=== PATIENT | female | born 1950 | race American Indian/Alaskan Native ===

== ENCOUNTER 2021-07-14 20:40 | Emergency (ER) | payer MEDICARE ==
--- NOTE | 2021-07-14 22:40 | XRay Report ---
LEFT HIP 2 VIEW(S) INDICATION / CLINICAL INFORMATION: fall COMPARISON: None available. FINDINGS: BONES / JOINT(S): No acute displaced fracture or dislocation. Mild DJD of bilateral hip joints. SOFT TISSUES: There is a 4 to 5 cm calcified lesion projecting at the left SI joint which is nonspeci fic. This can be further evaluated with a CT if clinically indicated. ADDITIONAL FINDINGS: None. Signer Name: Cordell Barry MD Signed: 07/14/2021 10:35 PM Workstation Name: [id number]
[2021-07-15] MEDS ORDERED: oxyCODONE /ACETAMINOPHEN 5-325MG TAB PO ONE (02:07)
--- NOTE | 2021-07-15 02:13 | Emergency Department Report ---
ED Lower Extremity HPI - General Chief Complaint: Fall Stated Complaint: FALL/LEFT HIP/LEG Time Seen by Provider: 07/15/21 02:02 Source: patient Mode of arrival: Ambulatory Limitations: No Limitations - History of Present Illness Complaint: hip injury, leg injury -: week(s) (Fell 1 week ago with symptoms still linger today) Injury: Hip: Left, Leg: Left Type of Injury: blunt Place: home Worsens With: nothing Context: fall (Ms. Litzy Hightower is resting to the bathroom this evening when she was utilizing her walker to get her there. In the process she lost her balance due to something being in the way of the walker or misstep and with the foot causing a mechanical fall landing on her left side striking her lower leg ) Associated Symptoms: ambulatory - Related Data Allergies Allergy/AdvReac Type Severity Reaction Status Date / Time No Known Allergies Allergy Verified 07/14/21 21:43 ED Review of Systems ROS: Stated complaint: FALL/LEFT HIP/LEG Other details as noted in HPI Comment: All other systems reviewed and negative ED Past Medical Hx - Past Medical History Previous Medical History?: Yes Additional medical history: ARTHRITIS - Surgical History Past Surgical History?: No - Social History Smoking Status: Never Smoker Substance Use Type: None ED Physical Exam - General Limitations: No Limitations General appearance: alert, in no apparent distress - Head Head exam: Present: atraumatic, normocephalic - Eye Eye exam: Present: normal appearance - ENT ENT exam: Present: mucous membranes moist - Neck Neck exam: Present: normal inspection - Respiratory Respiratory exam: Present: normal lung sounds bilaterally. Absent: respiratory distress - Cardiovascular Cardiovascular Exam: Present: regular rate, normal rhythm. Absent: systolic murmur, diastolic murmur, rubs, gallop - GI/Abdominal GI/Abdominal exam: Present: soft, normal bowel sounds - Extremities Exam Extremities exam: Present: normal inspection, tenderness - Expanded Lower Extremity Exam Left Hip exam: Present: tenderness. Absent: ecchymosis, deformity, external rotation, internal rotation, shortening Upper Leg exam: Present: normal inspection Knee exam: Present: normal inspection, full ROM Lower Leg exam: Present: tenderness, swelling. Absent: deformity, crepidus, dislocation, palpable cord, Randall's sign Ankle exam: Present: normal inspection, full ROM Foot/Toe exam: Present: normal inspection, full ROM Neuro vascular tendon exam: Absent: abnormal cap refill - Back Exam Back exam: Present: normal inspection - Neurological Exam Neurological exam: Present: alert, oriented X3 - Psychiatric Psychiatric exam: Present: normal affect, normal mood - Skin Skin exam: Present: warm, dry, intact, normal color. Absent: rash ED Course Vital Signs 07/14/21 21:39 Temperature 97.8 F Pulse Rate 83 Respiratory 18 Rate Blood Pressure 147/45 O2 Sat by Pulse 96 Oximetry ED Lower Extremity MDM - Radiology Data Radiology results: report reviewed [address] [address] XRay Report Signed Patient: LAUREL TRACY MR #: [id number] : 1950 Acct:[id number] Age/Sex: 70 / F ADM Date: 07/14/21 Loc: ED Attending Dr: Ordering Physician: KVNG KARIMI MD Date of Service: 07/14/21 Procedure(s): XR hip 2-3V LT Accession Number(s): [id number] cc: ED MD TREV Fluoro Time In Minutes: LEFT HIP 2 VIEW(S) INDICATION / CLINICAL INFORMATION: fall COMPARISON: None available. FINDINGS: BONES / JOINT(S): No acute displaced fracture or dislocation. Mild DJD of bilateral hip joints. SOFT TISSUES: There is a 4 to 5 cm calcified lesion projecting at the left SI joint which is nonspecific. This can be further evaluated with a CT if clinically indicated. ADDITIONAL FINDINGS: None. Signer Name: Cordell Barry MD Signed: 07/14/2021 10:35 PM Workstation Name: [id number] Transcribed By: DB Dictated By: CORDELL BARRY MD Electronically Authenticated By: CORDELL BARRY MD Signed Date/Time: 07/14/212234 DD/ 33 TD/TT: [address] [address] XRay Report Signed Patient: LAUREL TRACY MR #: [id number] : 1950 Acct:[id number] Age/Sex: 70 / F ADM Date: 07/14/21 Loc: ED Attending Dr: Ordering Physician: JACLYN THORNTON Date of Service: 07/15/21 Procedure(s): XR tibia fibula 2V LT Accession Number(s): [id number] cc: JACLYN THORNTON Fluoro Time In Minutes: LEFT TIBIA-FIBULA 2 VIEW(S) INDICATION / CLINICAL INFORMATION: fall lower leg pain COMPARISON: None available. FINDINGS: BONES / JOINT(S): No acute fracture or subluxation. Advanced tricompartmental osteoarthrosis of the left knee is present with narrowing of the medial joint compartment. SOFT TISSUES: No significant abnormality. ADDITIONAL FINDINGS: None. IMPRESSION: 1. No acute fractures. Advanced tricompartmental osteoarthrosis of the left knee. Signer Name: Lambert Bryant II, MD Signed: 07/15/2021 2:50 AM Workstation Name: [id number] Transcribed By: DI Dictated By: LAMBERT BRYANT II, MD Electronically Authenticated By: LAMBERT BRYANT II, MD Signed Date/Time: 07/15/21249 DD/ 9 TD/TT: - Medical Decision Making Seen emergency department today for left lower extremity pain due to a fall 1 week ago. Patient is ambulatory with her walker which is her usual form of transportation. While in the emergency department she was believed to have stable gait and bilateral lower extremity m. x-rays were obtained of the hip and lower leg and none showed any fracture or dislocation. Patient is educated on medication icing and management and advised to follow-up with orthopedic for definitive treatment. [place] been brought to her knowledge about the advanced tricompartmental arthritis to the knee which may warrant further pain flareups in the near future Critical care attestation.: If time is entered above; I have spent that time in minutes in the direct care of this critically ill patient, excluding procedure time. ED Disposition Clinical Impression: Contusion of left hip Disposition: HOME / SELF CARE / HOMELESS Is pt being admited?: No Does the pt Need Aspirin: No Condition: Stable Instructions: Contusion, How to Use Cold Therapy Referrals: YONNY ISABEL MD [Staff Physician] - 3-5 Days
--- NOTE | 2021-07-15 02:55 | XRay Report ---
LEFT TIBIA-FIBULA 2 VIEW(S) INDICATION / CLINICAL INFORMATION: fall lower leg pain COMPARISON: None available. FINDINGS: BONES / JOINT(S): No acute fracture or subluxation. Advanced tricompartmental osteoarthrosis of the l eft knee is present with narrowing of the medial joint compartment. SOFT TISSUES: No significant abnormality. ADDITIONAL FINDINGS: None. IMPRESSION: 1. No acute fractures. Advanced tricompartmental osteoarthrosis of the left knee. Signer Name: Андрей Shell II, MD Signed: 07/15/2021 2:50 AM Workstation Name: [id number]
[2021-07-15 03:28] VITALS: BP 143/49
== END 2021-07-15 04:02 | disposition home or self-care (01) ==
LOC: ED 20:40
DX: S70.02XA Contusion of left hip, initial encounter (principal); W19.XXXA Unspecified fall, initial encounter; Y93.89 Activity, other specified; Y92.89 Other specified places as the place of occurrence of the external cause; Y99.8 Other external cause status
CPT/HCPCS: 99283